=== PATIENT | female | born 1950 | race Two or more races ===

== ENCOUNTER 2024-08-11 12:00 | Emergency (ER) | payer MEDICARE, MEDICAID, SELFPAY ==
--- NOTE | ~2024-08-11 | XR_ITS ---
EXAMINATION: XR RIBS, RIGHT CLINICAL INFORMATION: rib pain s/p fall COMPARISON: None available. TECHNIQUE: 3 views of the right ribs were obtained. FINDINGS: Lungs are clear. No consolidation, pneumothorax, or pleural effusion. The cardiomediastinal silhouette and pulmonary vasculature are normal. Osseous structures are unremarkable. Ribs are intact. No fractures are identified. XR/XR ribs RT min 3V w CXR1V IMPRESSION: Unremarkable examination. Electronically signed by: Yogesh Ocampo MD 08/11/2024 03:12 PM DONYA
--- NOTE | ~2024-08-11 | XR_ITS ---
EXAMINATION: Left tibia-fibula CLINICAL INFORMATION: Wound anterior aspect of tibia fibula. Left tibia-fibula pain. COMPARISON: None. TECHNIQUE: 2 views of left tibia fibula FINDINGS: Soft tissues: Minimal calcification overlies the distal patella tendon perhaps reflecting degenerative change or calcium deposition disease. No ulceration detected. Arterial calcification noted. Chondrocalcinosis noted in the knee joint. Bones otherwise unremarkable. XR/XR tibia fibula LT 2V IMPRESSION: No acute abnormality detected. Bones unremarkable Electronically signed by: Yogesh Ocampo MD 08/11/2024 03:11 PM EST
[2024-08-11 12:43] VITALS: BP 170/62; PULSE 83; RESP 16; TEMP 36.3; O2SAT 98; BMI 21.0
--- NOTE | 2024-08-11 12:48 | ED_ITS ---
HPI - General Adult General Chief complaint: Fall Stated complaint: R Side Pain L Foot Pain Fall Time Seen by Provider: 08/11/24 22:01 Source: patient and family Mode of arrival: ambulatory Limitations: no limitations History of Present Illness ED Provider: emilie NAVARRETE narrative: Patient apparently fell while getting out of the bed 1 week ago hitting her peralta of left leg to the bed metal has superficial abrasion also complaining of pain in the left anterior ribs no shortness a no other injuries Related Data Previous Rx's ?Medication ?Instructions ?Recorded cephalexin 500 mg capsule 500 mg PO QID 10 days #7 caps 08/11/24 ibuprofen 600 mg tablet 600 mg PO Q8-10H PRN fever or pain 08/11/24 #30 tabs mupirocin 2 % topical ointment 1 appl topical BID #15 grams 08/11/24 Allergies Allergy/AdvReac Type Severity Reaction Status Date / Time No Known Allergies Allergy Verified 08/11/24 12:50 Review of Systems 2 Review of Systems: Yes all other systems are reviewed and are negative [facility] Social History Social History Advance Directives: No Advance Directives Information Provided: No Do you have a plan to hurt others: No Plan Physical Exam ED Vital Signs: Vital Signs - 24 hr 08/11/24 12:43 08/11/24 20:23 08/11/24 22:00 Temperature 97.4 F 98.5 F 98.6 F Pulse Rate 83 82 76 Respiratory Rate 16 16 18 Blood Pressure 170/62 H 182/70 H 174/68 H Pulse Oximetry 98 97 99 Oxygen Delivery Method Room Air Room Air Room Air BMI result Body Mass Index 21.0 Appearance: Alert. Oriented X3. No acute distress. Eyes: PERRLA, No Nystagmus ENT: Pharynx normal. Oral Mucosa moist Neck: Normal inspection. Neck supple. CVS: Normal heart rate and rhythm. Pulses normal. Respiratory: No respiratory distress. Equal air entry bilateral, no wheezing/rales/rhonchi Abdomen: Soft and nontender. Bowel sounds are present, no mass palpable, no CVA tenderness Skin: Skin warm and dry. Normal skin color. Normal skin turgor. Extremities: No lower extremity edema. No calf tenderness abrasion with slight redness left tibia Neuro: Oriented X 3. No motor deficit. No sensory deficit.No cerebellar signs , cranial nerves II-XII intact Chest Chest/axillae images: 2 1. Mild diffuse tenderness no crepitus lungs are clear Extrem Ankle/foot/toe images: 2 1. Superficial contusion with abrasion surrounding redness patient ambulatory as such Course Course Course Narrative: This is an RME: Additional HPI, ROS, PE not included below will be deferred to primary provider. RME assessment and note performed by: Lisandra Ya PA-C This is a [id number]-female, with a hx of diabetes, thyroid disease, hyperlipidemia, who presents to the ER with complaints of fall. Pt states that she stood up and felt dizzy and fell onto her right side 1 week ago. Reports right sided rib pain and left leg pain. She does admit to having intermittent episodes of dizziness, denies any dizziness at this time. Denies any head strike. She is not anticoagulated. Plan: Labs, EKG, xrays, further ER eval needed Medical Decision Making Medical Decision Making MDM Narrative: Patient is status post mechanical fall with superficial bruise on the left tibia x-ray will prescribe cephalexin to avoid infection and local treatment Lab Data MDM Lab Attestation statement: I reviewed the patient's lab results. 08/11/24 14:19 08/11/24 14:19 Labs: Lab Results 08/11/24 Range/Units 14:19 WBC 7.6 (4.8-10.8) X10*3/uL RBC 3.55 L (4.20-5.50) X10*6/uL Hgb 10.9 L (12.0-16.0) g/dl Hct 33.0 L (37.0-47.0) % MCV 93.0 (80.0-98.0) fL MCH 30.7 (27.0-33.0) pg MCHC 33.0 (31.0-35.0) g/dl RDW 13.7 (11.0-16.0) % Plt Count 319 (160-400) X10*3/uL MPV 11.7 (9.4-12.3) fL Immature Gran % (Auto) 0.4 (0.0-0.4) % Neut % (Auto) 59.7 (45-73) % Lymph % (Auto) 29.0 (20-40) % Thomas % (Auto) 8.0 (2-11) % Eos % (Auto) 2.2 (0-4) % Baso % (Auto) 0.7 (0-2) % Lymph # (Auto) 2.2 (1.2-4.9) X10*3/uL Thomas # (Auto) 0.6 (0.1-1.2) X10*3/uL Eos # (Auto) 0.2 (0.0-0.4) X10*3/uL Baso # (Auto) 0.1 (0.0-0.2) X10*3/uL Abs Immat Gran (auto) 0.03 (0.00-0.03) X10*3/uL Absolute Neuts (auto) 4.5 (2.0-8.3) x10*3/uL Absolute Nucleated RBC 0.000 (0.0-0.012) X10*3/uL Nucleated RBC % (auto) 0.0 (0.0-0.2) /100WBC Sodium 139 (135-145) mmol/L Potassium 4.6 (3.3-5.1) mmol/L Chloride 105 (96-108) mmol/L Carbon Dioxide 26 (22-29) mmol/L Anion Gap 13 (12-20) BUN 24 H (9-16) mg/dL Creatinine 0.97 (0.5-1.4) mg/dL Estim Creat Clear Calc 45.9 Estimated GFR 56 Random Glucose 213 H (60-115) mg/dL Calcium 9.1 (8.4-10.2) mg/dL Total Bilirubin 0.4 (0.0-1.0) mg/dL Direct Bilirubin 0.1 (0.0-0.5) mg/dL AST 20 (5-31) U/L ALT 18 (0-31) U/L Alkaline Phosphatase 108 (39-117) U/L Troponin I High Sens 3.0 (<3.5-17.0) ng/L Total Protein 7.8 (6.5-8.0) g/dL Albumin 4.0 (3.5-5.0) g/dL Independent Interpretation I performed an independent interpretation of an: Plain X-Ray Interpretation: Normal sinus rhythm heart rate 84 beats per minute no acute ST-T changes no acute ischemia Radiology Impression Discussion of test interpretation with radiology: I have reviewed the radiologist's reading. Radiologist Impression: No fracture Discharge Plan Discharge Clinical Impression: Contusion of left tibia, Rib contusion Patient Disposition: Home, Self-Care Instructions: Contusion in Adults (ED), Rib Contusion (ED) Additional Instructions: Local care of the wound as advised Antibiotic as prescribed to prevent infection Pain medication as prescribed Prescriptions: New cephalexin 500 mg capsule 500 mg PO QID 10 Days Qty: 7 0RF ibuprofen 600 mg tablet 600 mg PO Q8-10H PRN (Reason: fever or pain) Qty: 30 0RF mupirocin 2 % ointment 1 appl topical BID Qty: 15 0RF Print Language: Welsh
--- NOTE | 2024-08-11 12:52 | ECG_ITS ---
Test Reason : FALL Blood Pressure : / mmHG Vent. Rate : 084 BPM Atrial Rate : 084 BPM P-R Int : 154 ms QRS Dur : 084 ms QT Int : 386 ms P-R-T Axes : 012 -03 097 degrees QTc Int : 456 ms Normal sinus rhythm Nonspecific T wave abnormality Borderline ECG No previous ECGs available Referred By: Lisandra Ya Electronically Signed By:JUAN J CHAVEZ
[2024-08-11 14:26] LABS: Basophils Absolute Auto 0.1 X10*3/uL (0.0-0.2); Basophils Percent Auto 0.7 % (0-2); Eosinophils Absolute Auto 0.2 X10*3/uL (0.0-0.4); Eosinophils Percent Auto 2.2 % (0-4); Hemoglobin 10.9 g/dl (12.0-16.0); Imm Gran Abs Auto 0.03 X10*3/uL (0.00-0.03); Imm Gran Pct Auto 0.4 % (0.0-0.4); Lymphocytes Absolute Auto 2.2 X10*3/uL (1.2-4.9); MANUAL DIFF FLAG NO; Mean Corpuscular Hemoglobin 30.7 pg (27.0-33.0); Mean Platelet Volume 11.7 fL (9.4-12.3); Monocytes Absolute Auto 0.6 X10*3/uL (0.1-1.2); Neutrophils Absolute Auto 4.5 x10*3/uL (2.0-8.3); Neutrophils Percent Auto 59.7 % (45-73); Platelet Count 319 X10*3/uL (160-400); Red Blood Count 3.55 X10*6/uL (4.20-5.50); Red Cell Distribution Width 13.7 % (11.0-16.0); White Blood Count 7.6 X10*3/uL (4.8-10.8)
[2024-08-11 14:42] LABS: Alanine Aminotransferase 18 U/L (0-31); Alkaline Phosphatase 108 U/L (39-117); Anion Gap 13 (12-20); Aspartate Amino Transferase 20 U/L (5-31); Bilirubin Direct 0.1 mg/dL (0.0-0.5); Bilirubin Total 0.4 mg/dL (0.0-1.0); Blood Urea Nitrogen 24 mg/dL (9-16); Calcium 9.1 mg/dL (8.4-10.2); Carbon Dioxide 26 mmol/L (22-29); Chloride 105 mmol/L (96-108); Creatinine Clr Calc Pharmacy 45.9; Estimated Glomerular Filt Rate 56; Glucose Random 213 mg/dL (60-115); Potassium 4.6 mmol/L (3.3-5.1); Sodium 139 mmol/L (135-145); Total Protein 7.8 g/dL (6.5-8.0)
[2024-08-11 20:23] VITALS: BP 182/70; PULSE 82; RESP 16; TEMP 36.9; O2SAT 97
[2024-08-11 22:00] VITALS: BP 174/68; PULSE 76; RESP 18; TEMP 37; O2SAT 99
[2024-08-11] MEDS: Ibuprofen 600 MG TABLET PO (23:25)
[2024-08-11] MEDS: cephALEXin 500 MG CAPSULE PO (23:26)
[2024-08-11 23:36] VITALS: BP 185/67; PULSE 90; RESP 16; TEMP 36.9; O2SAT 98
== END 2024-08-11 23:37 | disposition home or self-care (01) ==
PROVIDERS: Physician Assistant Medical; Emergency Provider Internal Medicine
DX: S89.92XA Unspecified injury of left lower leg, initial encounter (principal); S20.212A Contusion of left front wall of thorax, initial encounter; R07.89 Other chest pain; M79.605 Pain in left leg; W06.XXXA Fall from bed, initial encounter; Y93.89 Activity, other specified; Y92.89 Other specified places as the place of occurrence of the external cause; Y99.8 Other external cause status; Z79.899 Other long term (current) drug therapy
CPT/HCPCS: 36415; 71101; 73590; 80048; 80076; 84484; 85025; 93005; 99283; 99284

== ENCOUNTER → 2024-08-11 12:52 | Outpatient (BNV) | payer MEDICAID, SELFPAY | PROVIDERS: Emergency Provider Internal Medicine; Visit Provider Internal Medicine | DX: R94.31 Abnormal electrocardiogram [ECG] [EKG] (principal) | CPT/HCPCS: 93010 ==

== ENCOUNTER 2024-08-29 09:42 | Emergency (ER) | payer MEDICARE, SELFPAY ==
[2024-08-29 10:01] VITALS: BP 147/72; PULSE 92; RESP 16; TEMP 35.8; O2SAT 98; BMI 18.9
[2024-08-29 10:47] LABS: MANUAL DIFF FLAG NO
[2024-08-29 10:49] LABS: Basophils Percent Auto 0.6 % (0-2); Eosinophils Absolute Auto 0.1 X10*3/uL (0.0-0.4); Eosinophils Percent Auto 2.1 % (0-4); Hematocrit 34.8 % (37.0-47.0); Hemoglobin 11.4 g/dl (12.0-16.0); Imm Gran Abs Auto 0.02 X10*3/uL (0.00-0.03); Imm Gran Pct Auto 0.3 % (0.0-0.4); Lymphocytes Absolute Auto 1.4 X10*3/uL (1.2-4.9); Lymphocytes Percent Auto 19.8 % (20-40); Mean Corpuscular HGB Conc 32.8 g/dl (31.0-35.0); Mean Corpuscular Hemoglobin 30.1 pg (27.0-33.0); Mean Corpuscular Volume 91.8 fL (80.0-98.0); Monocytes Absolute Auto 0.6 X10*3/uL (0.1-1.2); Monocytes Percent Auto 8.8 % (2-11); Neutrophils Absolute Auto 4.7 x10*3/uL (2.0-8.3); Neutrophils Percent Auto 68.4 % (45-73); Platelet Count 260 X10*3/uL (160-400); Red Blood Count 3.79 X10*6/uL (4.20-5.50); Red Cell Distribution Width 13.2 % (11.0-16.0); White Blood Count 6.8 X10*3/uL (4.8-10.8)
[2024-08-29 11:08] LABS: Anion Gap 13 (12-20); Blood Urea Nitrogen 19 mg/dL (9-16); Calcium 9.4 mg/dL (8.4-10.2); Carbon Dioxide 28 mmol/L (22-29); Chloride 99 mmol/L (96-108); Creatinine Clr Calc Pharmacy 37.9; Estimated Glomerular Filt Rate 47; Glucose Random 452 mg/dL (60-115); Potassium 4.9 mmol/L (3.3-5.1); Sodium 135 mmol/L (135-145)
[2024-08-29 15:40] VITALS: BP 158/75; PULSE 88; RESP 14; TEMP 36.8; O2SAT 99
--- NOTE | 2024-08-29 16:39 | ED_ITS ---
HPI - Extremity Injury (Lower) General Chief Complaint: Extremity Injury, Lower Stated Complaint: l leg inj Time Seen by Provider: 08/29/24 16:10 Source: patient and family Mode of arrival: ambulatory Limitations: no limitations History of Present Illness ED Provider: Dr. Sharon Leroy HPI Narrative: Patient comes to the emergency room complaining of left peralta chronic wound. Patient states that about a month ago patient had a fall, scraped her left peralta. Patient denies any fever any chills, active bleeding. Patient states that the reason she came is because she is not healing as expected and is concerned that she is diabetic. Patient states that she takes tablets at home to control with a glucose in takes them as prescribed. Patient denies any recent injuries Related Data Previous Rx's ?Medication ?Instructions ?Recorded cephalexin 500 mg capsule 500 mg PO QID 7 days #28 caps 08/11/24 ibuprofen 600 mg tablet 600 mg PO Q8-10H PRN fever or pain 08/11/24 #30 tabs mupirocin 2 % topical ointment 1 appl topical BID #15 grams 08/11/24 Allergies Allergy/AdvReac Type Severity Reaction Status Date / Time No Known Allergies Allergy Verified 08/29/24 10:09 Review of Systems 2 Review of Systems: Constitutional : No Weight loss, No Fever, No Chills, No Night Sweats, No Fatigue, No Malaise ENT/Mouth : No Hearing loss, No Ear Pain, No Nasal Congestion, No Sinus Pain, No Hoarseness, No sore throat, No Rhinorrhea, No Swallowing Difficulty Eyes: No Eye Pain, No Swelling, No Redness, No Foreign Body, No Discharge, No Vision Changes Cardiovascular : No Chest Pain, No SOB, No Dyspnea on Exertion, No Orthopnea, No Edema, No Palpitations Respiratory : No Cough, No Sputum, No Wheezing, No Smoke Exposure, No Dyspnea Gastrointestinal : No Nausea, No Vomiting, No Diarrhea, No Constipation, No abdominal Pain, No Hematochezia, No Melena Genitourinary : no irregular bleeding, No Dysuria, No Urinary Frequency, No Hematuria, No Urinary Incontinence, No Urgency, No Flank Pain, No Urinary Flow Changes, No Hesitancy Musculoskeletal : No joint pain, No Myalgias, No Joint Swelling Skin : Complaining of a chronic wound on the left peralta, No Skin Lesions, No rash Neuro : No Weakness, No Numbness, No Paresthesias, No Loss of Consciousness, No Dizziness, No Headache Psych : No Anxiety/Panic, No Depression, No SI/HI/AH/VH, No Social Issues, Heme/Lymph: No Bruising, No Bleeding,No Lymphadenopathy Endocrine : No Polyuria, No Polydipsia, No Temperature Intolerance [facility] Past Medical History Medical History (Updated 08/29/24 @ 16:56 by Sharon Leroy MD) Type 2 diabetes mellitus Social History Social History Smoked in Last 30 Days: No Advance Directives: No Advance Directives Information Provided: Yes Do you have a plan to hurt others: No Plan Physical Exam 2 Vital Signs: Vital Signs: Last Vital Signs Temp 98.2 F 08/29/24 15:40 Pulse 88 08/29/24 15:40 Resp 14 08/29/24 15:40 BP 158/75 H 08/29/24 15:40 Pulse Ox 99 08/29/24 15:40 O2 Del Method Room Air 08/29/24 15:40 BMI result Body Mass Index 18.9 Const: Other: Appearance: Alert. Oriented X3. No acute distress. Well-appearing Eyes: Pupils equal, round and reactive to light. ENT: Pharynx normal. Neck: Normal inspection. Neck supple. No lymph nodes noted. No crepitus CVS: Normal heart rate and rhythm. Pulses normal. Normal S1 and S2 Respiratory: No respiratory distress. Breath sounds normal. No Wheezing. No rales Abdomen: Soft and nontender. No rigidity. No distention. Skin: Skin warm and dry. Normal skin color. Normal skin turgor. Extremities: No lower extremity edema. . Patient has a 3 cm x 3 cm eschar over the peralta on the left lower extremity. looks cleaned, no drainage, no significant pain to palpation Neuro: Oriented X 3. No motor deficit. No sensory deficit. Moving all extremities. No slurred speech. CN 2 through 12 grossly intact Psych: calm, cooperative, normal affect Medical Decision Making Medical Decision Making MDM Narrative: My interpretation of labs: At baseline hematology and chemistry. Blood glucose 452, anion gap 13 I discussed with the patient and her daughter that they eschar/wound on the left peralta is chronic. At this time, it is not infected, antibiotics are not indicated. However, patient would benefit from wound clinic visits. -patient's POC glucose without any treatment is 277. No further management at this time. Patient states that she has her medications available for her at home. Patient will be sent home with the phone number to call wound care. Differential Diagnosis Differential Diagnoses: The differential diagnosis associated with the presentation includes (Hyperglycemia, cellulitis, abscess) Lab Data MDM Lab Attestation statement: I reviewed the patient's lab results. 08/29/24 10:23 08/29/24 10:23 Labs: Lab Results 08/29/24 Range/Units 10:23 WBC 6.8 (4.8-10.8) X10*3/uL RBC 3.79 L (4.20-5.50) X10*6/uL Hgb 11.4 L (12.0-16.0) g/dl Hct 34.8 L (37.0-47.0) % MCV 91.8 (80.0-98.0) fL MCH 30.1 (27.0-33.0) pg MCHC 32.8 (31.0-35.0) g/dl RDW 13.2 (11.0-16.0) % Plt Count 260 (160-400) X10*3/uL MPV 13.0 H (9.4-12.3) fL Immature Gran % (Auto) 0.3 (0.0-0.4) % Neut % (Auto) 68.4 (45-73) % Lymph % (Auto) 19.8 L (20-40) % [place] % (Auto) 8.8 (2-11) % Eos % (Auto) 2.1 (0-4) % Baso % (Auto) 0.6 (0-2) % Lymph # (Auto) 1.4 (1.2-4.9) X10*3/uL [place] # (Auto) 0.6 (0.1-1.2) X10*3/uL Eos # (Auto) 0.1 (0.0-0.4) X10*3/uL Baso # (Auto) 0.0 (0.0-0.2) X10*3/uL Abs Immat Gran (auto) 0.02 (0.00-0.03) X10*3/uL Absolute Neuts (auto) 4.7 (2.0-8.3) x10*3/uL Absolute Nucleated RBC 0.000 (0.0-0.012) X10*3/uL Nucleated RBC % (auto) 0.0 (0.0-0.2) /100WBC Sodium 135 (135-145) mmol/L Potassium 4.9 (3.3-5.1) mmol/L Chloride 99 (96-108) mmol/L Carbon Dioxide 28 (22-29) mmol/L Anion Gap 13 (12-20) BUN 19 H (9-16) mg/dL Creatinine 1.12 (0.5-1.4) mg/dL Estim Creat Clear Calc 37.9 Estimated GFR 47 Random Glucose 452 H* (60-115) mg/dL Calcium 9.4 (8.4-10.2) mg/dL Discharge Plan Discharge Clinical Impression: Chronic wound, Acute hyperglycemia Patient Disposition: Home, Self-Care Instructions: Diabetic Hyperglycemia (ED), Chronic Wounds (ED) Additional Instructions: Please follow-up with your primary care physician tomorrow. If you have any worsening or new symptoms, please return to the emergency room or call 911 Prescriptions: No Action ibuprofen 600 mg tablet 600 mg PO Q8-10H PRN (Reason: fever or pain) Qty: 30 0RF mupirocin 2 % ointment 1 appl topical BID Qty: 15 0RF cephalexin 500 mg capsule 500 mg PO QID 7 Days Qty: 28 0RF Referrals: Ashley Wilson MD [Physician] - 08/30/24 Print Language: Albanian
[2024-08-29 16:55] LABS: Glucose, Whole Blood 277 mg/dL (60-115)
[2024-08-29 16:59] VITALS: BP 174/70; PULSE 82; RESP 20; TEMP 37; O2SAT 98
[2024-08-29 17:00] LABS: Beta-Hydroxybutyrate 0.13 mmol/L (0.02-0.27)
[2024-08-29 17:10] VITALS: BP 174/70; PULSE 82; RESP 20; TEMP 37; O2SAT 98
== END 2024-08-29 17:13 | disposition home or self-care (01) ==
PROVIDERS: Emergency Provider Emergency Medicine
DX: S81.802A Unspecified open wound, left lower leg, initial encounter (principal); E11.65 Type 2 diabetes mellitus with hyperglycemia; W19.XXXA Unspecified fall, initial encounter; Y93.9 Activity, unspecified; Y92.89 Other specified places as the place of occurrence of the external cause; Y99.8 Other external cause status; Z79.899 Other long term (current) drug therapy
CPT/HCPCS: 36415; 80048; 82010; 82947; 85025; 99283; 99284

== ENCOUNTER 2024-11-14 08:59 | Outpatient (REF) | payer MEDICARE, SELFPAY ==
--- OUTSIDE RECORDS SUMMARY | 2024-11-14 09:47 | XMS_ITS | Clinical Summary ---
Author Organization [employer] Address [address] [place] [address] Care Team Providers Care Legal Office Administrator Name Role Phone Myriam Wang MD Primary Care Provider [phone] Allergies No known active allergies Medications lisinopril-hydroC HLOROthiazide 20-12.5 MG tabletIndications :Essential hypertension Take 1 tablet by mouth Once per day. 90 tablet 3 5 11/10/19 26 Active levothyroxine (Synthroid) 75 MCG tabletIndications :Hypothyroidism, unspecified type Take 1 tablet (75 mcg) by mouth before breakfast. 90 tablet 3 5 11/10/19 26 Active sertraline (Zoloft) 50 MG tabletIndications :Current moderate episode of major depressive disorder, unspecified whether recurrent ([facility]/HCC) Take 1 tablet (50 mg) by mouth Once per day. 90 tablet 3 5 11/05/19 26 Active empagliflozin (Jardiance) 10 MGIndications:Germaine betes mellitus due to underlying condition with diabetic polyneuropathy, without long-term current use of insulin ([facility]) Take 1 tablet (10 mg) by mouth Once per day. 90 tablet 3 5 11/10/19 26 Active glipiZIDE XL (Glucotrol XL) 10 MG 24 hr tabletIndications :Diabetes mellitus due to underlying condition with diabetic polyneuropathy, without long-term current use of insulin ([facility]) Take 1 tablet (10 mg) by mouth Once per day. Do not crush, chew, or split. 90 tablet 3 5 11/10/19 26 Active aspirin 81 MG chewable tabletIndications :Diabetes mellitus due to underlying condition with diabetic polyneuropathy, without long-term current use of insulin ([facility]) Chew 1 tablet (81 mg) Once per day. 90 tablet 3 5 11/10/19 26 Active Vit-Fe Ezs-GI-Rsfvt (PNV Plus Multivit+DHA) 27-1 & 312 MG miscIndications:U nderweight Take 1 tablet by mouth Once per day. 90 each 3 5 Active mirtazapine (Remeron) 7.5 MG tabletIndications :Underweight,Curr ent moderate episode of major depressive disorder, unspecified whether recurrent (CMS/HCC) Take 1 tablet (7.5 mg) by mouth at bedtime. For sleep and appetite 30 tablet 3 5 03/10/20 25 Active Active Problems Problem Noted Date Diagnosed Date Protein-calorie malnutrition, unspecified severi ty 11/10/2024 Diabetes mellitus due to und erlying condition with diabetic polyneuropathy, without long-term current use of insulin 11/10/2024 Essential hypertension 11/10/2024 Urge incontinence of urine 11/10/2024 Assessment & Plan (11/10/2024 10:07 AM EST): Needs pullups size small, 6 per day Frequent falls 11/10/2024 Assessment & Plan (11/10/2024 10:08 AM EST): Walker with seat Encounters Date Type Department Care Team Description 11/10/2024 9:00 AM EST Office Visit [facility] [address] [place] [id number] Myriam Wang MD Essential hypertension (Primary Dx); Dietary counseling; Exercise counseling; Underweight; Diabetes mellitus due to underlying condition with diabetic polyneuropathy, without long-term current use of insulin (CMS/HCC); Protein-calorie malnutrition, unspecified severity (CMS/HCC); Current moderate episode of major depressive disorder, unspecified whether recurrent (CMS/HCC); Hypothyroidism, unspecified type; Urge incontinence of urine; Frequent falls 11/10/2024 Travel 10/27/2024 Patient Outreach [facility] [address] [place] [phone] Myriam Wang MD Care Coordination ([facility] outreach for SDOH PT-1 and food needs-referral completed /) 10/27/2024 Patient Outreach [facility] [address] [place] [address] Myriam Wang MD Pre-visit Planning (SDOH screening negative and tobacco screening negative) from Last 3 Months Social History Tobacco Use Types Packs/Day Years Used Date Smoking Tobacco: Never Smokeless Tobacco: Never Tobacco Cessation:Counseling Given: Not Answered Alcohol Use Standard Drinks/Week Comments Never 0 (1 standard drink = 0.6 oz pur e alcohol) Depression Answer Date Recorded Patient Health Questionnaire-9 Score 2 11/10/2024 Patient Health Questionnaire-9 Score 2 11/10/2024 Last PHQ-9: Questionnaire Data Not on file 0 11/10/2024 Housing Stability Answer Date Recorded What is your housing situation today? I have bridger chatman 10/27/[address] you li ve. Do you have problems with any of the following? None of the above 10/27/2024 Food Insecurity Answer Date Recorded Within the past 12 months, y ou worried that your food would run out before you got money to buy more: Never True 10/27/2024 Within the past 12 months,th e food you bought just didn't last and you didn't have enough money to get more: Never True Transportation Answer Date Recorded In the past 12 months, has l ack of transportation kept you from medical appts, meetings, work or from getting things needed for daily living? Yes, it has kept me from non-medical meetings, work, or getting things that I need 10/27/2024 Utilities Answer Date Recorded In the past 12 months, has t he electric, gas, oil or water company threatened to shut off services in your home? No 10/27/2024 Depression Answer Date Recorded Patient Health Questionnaire-2 Score 0 11/10/2024 Internet Access Answer Date Recorded Internet Access Q1 No 10/27/2024 Internet Access Q2 I do not want or need it 10/14 Comments Unknown Sex and Gender Information Value Date Recorded Sex Assigned at Female 09/21/2024 2:23 PM EST Legal Sex Female 2:16 PM EST Gender Identity Female 09/21/2024 2:23 PM EST Sexual Orientation Don't know 11/09/2024 8: 36 AM EST Last Filed Vital Signs Vital Sign Reading Time Taken Comments Blood Pressure 172/92 11/10/2024 9:03 AM EST Pulse 92 11/10/2024 9:03 AM EST Temperature 36.4 ??C (97.5 ??F) 11/10/2024 9:03 AM ES T Respiratory Rate 15 11/10/2024 9:03 AM EST Oxygen Saturation 100% 11/10/2024 9:03 AM EST Inhaled Oxygen Concentration - - Weight 52.6 kg (116 lb) 11/10/2024 9:03 AM EST Height 172.7 cm (5' 8 ) 11/10/2024 9:03 AM EST Body Mass Index 17.64 11/10/2024 9:03 AM EST Plan of Treatment Upcoming Encounters Date Type Department Care Team (Late st Contact Info) Description 02/06/2025 11:30 AM EDT Office Visit [facility] [address], [place] [phone] Myriam Wang MD [address], [place] [phone] Health Maintenance Due Date Last Done Comments Diabetes: Hemoglobin A1C 1948 Lipid Panel 1948 Diabetes: Foot Exam 1958 Eye Exam 1958 Hepatitis C Screening 1966 DTaP/Tdap/Td Vaccines (1 - Tdap) 1967 Diabetes: Urine Protein Screening 1967 Pneumococcal Vaccine: 50+ Years (1 of 2 - PCV) 1967 Zoster Vaccines (1 of 2) 1998 RSV Patients and Patients Aged 60 years or older (1 - 1-dose 75+ series) 2023 COVID-19 Vaccine (1 - 2023-2 5 season) 2024 Influenza Vaccine (#1) 2024 SDOH Screening 10/27/2025 10/27/2024 Alcohol/Substance Use Screening 11/10/2025 11/10/2024 Depression Screening 11/10/2025 11/10/2024, 11/10/2024 Tobacco Screening 11/10/2025 11/10/2024 HIB Vaccines Aged Out No longer eligi ble based on patient's age to complete this topic HPV Vaccines Aged Out No longer eligi ble based on patient's age to complete this topic Hepatitis A Vaccines Aged Out No long er eligible based on patient's age to complete this topic Hepatitis B Vaccines Aged Out No long er eligible based on patient's age to complete this topic IPV Vaccines Aged Out No longer eligi ble based on patient's age to complete this topic Meningococcal Vaccine Aged Out No ryan otis eligible based on patient's age to complete this topic RSV under 20 months Aged Out No longe r eligible based on patient's age to complete this topic Rotavirus Vaccines Aged Out No longer eligible based on patient's age to complete this topic Insurance [facility] STANDARD MEDICARE Care Teams Legal Office Administrator Relationship Specialty Start Date End Date Myriam Wang MD [address] [place] [phone] PCP - General Family Medicine 11/10/24
--- OUTSIDE RECORDS SUMMARY | 2024-11-14 09:47 | XMS_ITS | Encounter Summary ---
Author Organization [employer] Address [address] [place] [address] Care Team Providers Care Dough Mixer Name Role Phone Unavailable Primary Care Provider Unavailabl e Reason for Visit * Reason Comments Care Coordination CHW outreach for SDO H PT-1 and food needs-referral completed Encounter Details Date Type Department Care Team (Latest Contact Info) Description 10/27/2024 Patient Outreach [facility] [address] [place] [address] Myriam Wang MD [address] [place] [address] Care Coordination (CHW outreach for SDOH PT-1 and food needs-referral completed /) Social History Tobacco Use Types Packs/Day Years Used Date Smoking Tobacco: Never Assessed Housing Stability Answer Date Recorded What is your housing situation today? I have bridgerdk chatman 10/27/[address] you [...] off services in your home? No 10/27/2024 Internet Access Answer Date Recorded Internet Access Q1 No 10/27/2024 Internet Access Q2 I do not want or need it 10/14 Comments Unknown Sex and Gender Information Value Date Recorded Sex Assigned at Female 09/21/2024 2:23 PM EST Legal Sex Female 2:16 PM EST Gender Identity Female 09/21/2024 2:23 PM EST Sexual Orientation Don't know 11/09/2024 8: 36 AM EST documented as of this encounter Progress Notes * Mervin Francois - 10/27/2024 10:30 AM EST CHW Mervin Francois, placed outbound call to patient for assistance with SDOH as a referral was received by the provider. Patient's name and were confirmed. Patient screened positive for the following SDOH food insecurities. Patient states family in on SNAP program at this time. CHW referral patient to the local list of pantries in the area for help. PT-1 requested was send out in behalf of patient for futures appt. Patient verbalizes understanding, and able to agree with plan to follow up.Patient educated on extended clinic hours on Mondays through Wednesdays, and Walk-In Urgent Care Located in [facility] of [facility]. Patient provided with after-hours line for [facility], , which offer night time triage service and option to transfer to manager valuation provider if needed. documented in this encounter Plan of Treatment Upcoming Encounters Date Type Department Care Team (Late st Contact Info) Description 02/06/2025 11:30 AM EDT Office Visit [facility] [address] [place] [address] Myriam Wang MD [address] [place] [address] documented as of this encounter Visit Diagnoses Not on filedocumented in this encounter
--- OUTSIDE RECORDS SUMMARY | 2024-11-14 09:48 | XMS_ITS | Encounter Summary ---
Author Organization [employer] Address [address] [place] [address] Care Team Providers Care Repeat Photocomposing Machine Operator Name Role Phone Myriam Wang MD Primary Care Provider [phone] Encounter Details Date Type Department Care Team (Latest Contact Info) Description 11/10/2024 Travel Social History Tobacco Use Types Packs/Day Years Used Date Smoking Tobacco: Never Smokeless Tobacco: Never Alcohol Use Standard Drinks/Week Comments Never 0 (1 standard drink = 0.6 oz pur e alcohol) Depression Answer Date Recorded Patient Health Questionnaire-9 Score 2 11/10/2024 Patient Health Questionnaire-9 Score 2 11/10/2024 Last PHQ-9: Questionnaire Data Not on file 0 11/10/2024 Housing Stability Answer Date Recorded What is your housing situation today? I have bridger sing 10/27/[address] you li [...] AM EST documented as of this encounter Plan of Treatment Upcoming Encounters Date Type Department Care Team (Late st Contact Info) Description 02/06/2025 11:30 AM EDT Office Visit [facility] [address] [place] [address] Myriam Wang MD [address] [place] [address] documented as of this encounter Visit Diagnoses Not on filedocumented in this encounter Additional Health Concerns Assessment Noted Time PHQ-9 Depression Total Score: 2 11/10/19 9:04 AM EST documented as of this encounter Care Teams Repeat Photocomposing Machine Operator Relationship Specialty Start Date End Date Myriam Wang MD [address] [place] [address] [id number] PCP - General Family Medicine 11/10/24 documented as of this encounter
--- OUTSIDE RECORDS SUMMARY | 2024-11-14 09:48 | XMS_ITS | Encounter Summary ---
Author Organization [employer] Address [address] [facility] 7[address] [place] [address] Care Team Providers Care Case Supervisor Name Role Phone Unavailable Primary Care Provider Unavailabl e Reason for Visit * Reason Comments Pre-visit Planning SDOH screening negat mervat and tobacco screening negative Encounter Details Date Type Department Care Team ([facility] st Contact Info) Description 10/27/2024 Patient Outreach [facility] [address] [place] [address] Myriam Wang MD [address] [place] [address] Pre-visit Planning (SDOH screening negative and tobacco screening negative) Social History Tobacco Use Types Packs/Day Years Used Date Smoking Tobacco: Never Assessed Housing Stability Answer Date Recorded What is your housing situation today? I have bridger lurdes 10/27/[address] you li [...] as of this encounter Progress Notes * Eli Whitlock - 10/27/2024 9:13 AM EST CC Eli placed successful outbound call to patient for pre-visit planning. Patient name and confirmed. Patient confirms date and time, and has transportation arrangements. Biggest concern for appointment appt at this time is poor ambulation and neuropathy Appropriate screening completed in ant icipation of appointment. Patient advised to bring to appointment a photo id and insurance card, SDOH positive. Patient looking for assistance with transportation Referral will be placed. documented in this encounter Plan of Treatment Upcoming Encounters Date Type Department Care Team (Late st Contact Info) Description 02/06/2025 11:30 AM EDT Office Visit [facility] [address] [place] [address] Myriam Wang MD [address] [place] [address] documented as of this encounter Visit Diagnoses Not on filedocumented in this encounter
--- OUTSIDE RECORDS SUMMARY | 2024-11-14 09:48 | XMS_ITS | Encounter Summary ---
Author Organization [employer] Address [address] [facility] 7t [place] [address] Care Team Providers Care Loan Officer Name Role Phone Myriam Wang MD Primary Care Provider [phone] Reason for Referral * Consultation (Routine) - Authorized Specialty Diagnoses / Procedures Referred By Bren anderson Referred To Contact Optometry Diagnoses Diabetes mellitus due to underlying condition with diabetic polyneuropathy, without long-term current use of insulin (CMS/HCC) Myriam Wang MD [address] [place] [address] Phone: tel: fax: [facility] OPTOMETRY [address] [place] [address] Phone: tel: fax: Referral ID Status Reason Start Date Expiration Date Visits Requested Visits Authorized [id number] Authorized Consult and Treat 11/10/2024 11/10/2025 1 1 * Consultation (Routine) - Authorized Specialty Diagnoses / Procedures Referred By Bren anderson Referred To Contact Podiatry Diagnoses Diabetes mellitus due to underlying condition with diabetic polyneuropathy, without long-term current use of insulin (CMS/HCC) Myriam Wang MD [address] [place] [address] Phone: tel: fax: Gianluca Child DPM [address] [address] Phone: tel: fax: Referral ID Status Reason Start Date Expiration Date Visits Requested Visits Authorized [id number] Authorized Specialty Services Required 11/10/2024 11/10/2025 1 1 Reason for Visit * Reason Comments New Patient Encounter Details Date Type Department Care Team (Late st Contact Info) Description 11/10/2024 9:00 AM EST Office Visit [facility] [address] [place] [address] Myriam Wang MD [address] [place] [address] Essential hypertension (Primary Dx); Dietary counseling; Exercise counseling; Underweight; Diabetes mellitus due to underlying condition with diabetic polyneuropathy, without long-term current use of insulin (CMS/HCC); Protein-calorie malnutrition, unspecified severity (CMS/HCC); Current moderate episode of major depressive disorder, unspecified whether recurrent (CMS/HCC); Hypothyroidism, unspecified type; Urge incontinence of urine; Frequent falls Social History Tobacco Use Types Packs/Day Years [...] AM EST documented as of this encounter Last Filed Vital Signs Vital Sign Reading [...] Mass Index 17.64 11/10/2024 9:03 AM EST documented in this encounter Progress Notes * Myriam Wang MD - 11/10/2024 9:00 AM EST SUBJECTIVE: Carrol Tucker is a 74 y.o. year old female who presents for new/transfer patient. Was in the ER for fall and laceration of L peralta 07/2024 Acute Concerns: Poor ambulation, neuropathy, fatigue, out of medications Podiatry referral Interim Updates: HTN In Lisinopril/hydrochlorothiazide DM2 On Jardiance, Glipizide Depression On Zoloft and Risperidone (for sleep) Will discontinue Risperidone and start Mirtazapine Neuropathy On Gabapentin, did not like it Urinary incontinence Urge incontinence Uses pullups Hypothyroidism On Synthroid 75mcg daily Patient Active Problem List Diagnosis Protein-calorie malnutrition, unspecified severity (CMS/HCC) Diabetes mellitus due to underlying condition with diabetic polyneuropathy, without long-term current use of insulin ([facility]) Essential hypertension Urge incontinence of urine Frequent falls History reviewed. No pertinent surgical history. No family history on file. Social History Social History Narrative Not on file Review of Systems Constitutional: Positive for activity change, appetite change, fatigue and unexpected weight change. Negative for chills, diaphoresis and fever. HENT: Negative. Respiratory: Negative. Cardiovascular: Negative. Gastrointestinal: Negative. Musculoskeletal: Positive for arthralgias. Skin: Positive for wound. OBJECTIVE: Vitals: 11/10/24 0903 BP: (!) 172/92 BP Location: Right arm Patient Position: Sitting BP Cuff Size: Adult Pulse: 92 Resp: 15 Temp: 97.5 ??F (36.4 ??C) TempSrc: Temporal SpO2: 100% Weight: 116 lb (52.6 kg) Height: 5' 8 (1.727 m) Physical Exam ASSESSMENT/PLAN Problem List Items Addressed This Visit Protein-calorie malnutrition, unspecified severity ([facility]) Diabetes mellitus due to underlying condition with diabetic polyneuropathy, without long-term current use of insulin ([facility]) Relevant Medications empagliflozin (Jardiance) 10 MG glipiZIDE XL (Glucotrol XL) 10 MG 24 hr tablet aspirin 81 MG chewable tablet Other Relevant Orders Hemoglobin A1c Referral to Podiatry Referral to [facility] Essential hypertension - Primary Relevant Medications lisinopril-hydroCHLOROthiazide 20-12.5 MG tablet Other Relevant Orders TSH W/Reflex to FT4 CBC auto differential Comprehensive Metabolic Panel Lipid Panel, Standard Urge incontinence of urine Current Assessment & Plan Needs pullups size small, 6 per day Frequent falls Current Assessment & Plan Walker with seat Other Visit Diagnoses Dietary counseling Exercise counseling Underweight Relevant Medications Vit-Fe Vwd-PH-Adoyy (PNV Plus Multivit+DHA) 27-1 & 312 MG misc mirtazapine (Remeron) 7.5 MG tablet Current moderate episode of major depressive disorder, unspecified whether recurrent ([facility]) Relevant Medications sertraline (Zoloft) 50 MG tablet mirtazapine (Remeron) 7.5 MG tablet Hypothyroidism, unspecified type Relevant Medications levothyroxine (Synthroid) 75 MCG tablet Follow Up: 2 months or sooner prn No Known Allergies Current Outpatient Medications: aspirin 81 MG chewable tablet, Chew 1 tablet (81 mg) Once per day., Disp: 90 tablet, Rfl: 3 empagliflozin (Jardiance) 10 MG, Take 1 tablet (10 mg) by mouth Once per day., Disp: 90 tablet, Rfl: 3 glipiZIDE XL (Glucotrol XL) 10 MG 24 hr tablet, Take 1 tablet (10 mg) by mouth Once per day. Do notcrush, chew, or split., Disp: 90 tablet, Rfl: 3 levothyroxine (Synthroid) 75 MCG tablet, Take 1 tablet (75 mcg) by mouth before breakfast., Disp: 90 tablet, Rfl: 3 lisinopril-hydroCHLOROthiazide 20-12.5 MG tablet, Take 1 tablet by mouth Once per day., Disp: 90 tablet, Rfl: 3 mirtazapine (Remeron) 7.5 MG tablet, Take 1 tablet (7.5 mg) by mouth at bedtime. For sleep and appetite, Disp: 30 tablet, Rfl: 3 Vit-Fe Qod-AV-Lmvyc (PNV Plus Multivit+DHA) 27-1 & 312 MG misc, Take 1 tabletby mouth Once per day., Disp: 90 each, Rfl: 3 sertraline (Zoloft) 50 MG tablet, Take 1 tablet (50 mg) by mouth Once per day., Disp: 90 tablet, Rfl: 3 East Timorese Translation: Provided by [facility] staff member LISSA Garcia documented in this encounter Miscellaneous Notes * Assessment & Plan Note - Myriam Wang MD - 11/10/2024 10:08 AM EST Associated Problem(s): Frequent falls Walker with seat * Assessment & Plan Note - Myriam Wang MD - 11/10/2024 10:07 AM EST Associated Problem(s): Urge incontinence of urine Needs pullups size small, 6 per day documented in this encounter Plan of Treatment Upcoming Encounters Date Type Department Care Team (Late st Contact Info) Description 02/06/2025 11:30 AM EDT Office Visit [facility] [address] [place] [address] Myriam Wang MD [address] [place] [address] Scheduled Orders Name Type Priority Associated Diagnoses Orde r Schedule TSH W/Reflex to FT4 Lab Routine Essential hypertension Expected: 11/10/2024 (Approximate), Expires: 11/10/2025 CBC auto differential Lab Routine Essential hypertension Expected: 11/10/2024 (Approximate), Expires: 11/10/2025 Comprehensive Metabolic Panel Lab Routine Essential hypertension Expected: 11/10/2024 (Approximate), Expires: 11/10/2025 Lipid Panel, Standard Lab Routine Essential hypertension Expected: 11/10/2024 (Approximate), Expires: 11/10/2025 Hemoglobin A1c Lab Routine Diabetes mellitus due to underlying condition with diabetic polyneuropathy, without long-term current use of insulin (CMS/HCC) Expected: 11/10/2024 (Approximate), Expires: 11/10/2025 Scheduled Referrals Name Type Priority Associated Diagnoses Orde r Schedule Referral to Podiatry Outpatient Referral Routine Diabetes mellitus due to underlying condition with diabetic polyneuropathy, without long-term current use of insulin (CMS/HCC) Expected: 11/10/2024 (Approximate), Expires: 11/10/2025 Referral to [facility] Care Outpatient Referral Routine Diabetes mellitus due to underlying condition with diabetic polyneuropathy, without long-term current use of insulin (CMS/HCC) Expected: 11/10/2024 (Approximate), Expires: 11/10/2025 documented as of this encounter Visit Diagnoses Diagnosis Essential hypertension- Primary Unspecified essential hypertension Dietary counseling Dietary surveillance and counseling Exercise counseling Underweight Diabetes mellitus due to underlying condition with diabetic polyneuropathy, without long-term current use of insulin (CMS/HCC) Protein-calorie malnutrition, unspecified severity (CMS/HCC) Current moderate episode of major depressive disorder, unspecified whether recurrent (CMS/HCC) Hypothyroidism, unspecified type Urge incontinence of urine Urge incontinence Frequent falls documented in this encounter Additional Health Concerns Assessment Noted Time PHQ-9 Depression Total Score: 2 11/10/19 9:04 AM EST documented as of this encounter Care Teams Loan Officer Relationship Specialty Start Date End Date Myriam Wang MD [address] [place] [phone] PCP - General Family Medicine 11/10/24 documented as of this encounter
[2024-11-14 11:25] LABS: MANUAL DIFF FLAG NO
[2024-11-14 11:36] LABS: Basophils Percent Auto 0.5 % (0-2); Eosinophils Absolute Auto 0.2 X10*3/uL (0.0-0.4); Hematocrit 37.4 % (37.0-47.0); Hemoglobin 12.3 g/dl (12.0-16.0); Imm Gran Abs Auto 0.03 X10*3/uL (0.00-0.03); Imm Gran Pct Auto 0.4 % (0.0-0.4); Lymphocytes Absolute Auto 2.4 X10*3/uL (1.2-4.9); Mean Corpuscular HGB Conc 32.9 g/dl (31.0-35.0); Mean Corpuscular Hemoglobin 29.8 pg (27.0-33.0); Mean Corpuscular Volume 90.6 fL (80.0-98.0); Mean Platelet Volume 13.4 fL (9.4-12.3); Monocytes Absolute Auto 0.7 X10*3/uL (0.1-1.2); Monocytes Percent Auto 8.8 % (2-11); Neutrophils Absolute Auto 4.2 x10*3/uL (2.0-8.3); Neutrophils Percent Auto 56.3 % (45-73); Platelet Count 268 X10*3/uL (160-400); Red Blood Count 4.13 X10*6/uL (4.20-5.50); Red Cell Distribution Width 13.2 % (11.0-16.0); White Blood Count 7.5 X10*3/uL (4.8-10.8)
[2024-11-14 11:52] LABS: Estimated Average Glucose 260 mg/dL; Hemoglobin A1C 302.7026 umol/L; Hemoglobin A1c % 10.7 % (<6.0); Total Hemoglobin (HGBA1C) 3234.0095 umol/L
[2024-11-14 12:07] LABS: Alanine Aminotransferase 19 U/L (0-31); Alkaline Phosphatase 115 U/L (39-117); Anion Gap 12 (12-20); Aspartate Amino Transferase 16 U/L (5-31); Bilirubin Total 0.4 mg/dL (0.0-1.0); Blood Urea Nitrogen 22 mg/dL (9-16); Calcium 9.2 mg/dL (8.4-10.2); Carbon Dioxide 27 mmol/L (22-29); Chloride 103 mmol/L (96-108); Cholesterol 301 mg/dL (<200); Estimated Glomerular Filt Rate 53; Glucose Random 360 mg/dL (60-115); HDL Cholesterol 52 mg/dL (>40); LDL Cholesterol Calculated 203 mg/dL (<100); Potassium 4.6 mmol/L (3.3-5.1); Sodium 137 mmol/L (135-145); Total Protein 8.2 g/dL (6.5-8.0); Triglycerides 234 mg/dL (<150)
[2024-11-14 12:21] LABS: TSH reflex Free T4 8.49 uIU/mL (0.32-4.0)
[2024-11-14 13:09] LABS: Free T4 (Free Thyroxine) 0.73 ng/dL (0.71-1.85)
== END 2024-11-14 09:00 | disposition home or self-care (01) ==
LOC: HO.HHCL 08:59
PROVIDERS: Visit Provider General Practice
DX: I10 Essential (primary) hypertension (principal); E08.42 Diabetes mellitus due to underlying condition with diabetic polyneuropathy
CPT/HCPCS: 36415; 80053; 80061; 83036; 84439; 84443; 85025

== ENCOUNTER 2025-02-06 12:08 | Outpatient (REF) | payer MEDICARE, SELFPAY ==
--- OUTSIDE RECORDS SUMMARY | 2025-02-06 12:29 | XMS_ITS | Clinical Summary ---
Author Organization [address] [facility] Address [address] [place] [address] Phone Care Team Providers Care Associate Professor Of History Name Role Phone Myriam Wang MD Primary Care Provider [phone] Social History Tobacco Use Types Packs/Day Years Used Date Smoking Tobacco: Never Assessed Comments Unknown Sex and Gender Information Value Date Recorded Sex Assigned at Not on file Legal Sex Female 8:28 AM EDT Gender Identity Not on file Sexual Orientation Not on file Plan of Treatment Upcoming Encounters Date Type Department Care Team ([facility] st Contact Info) Description 02/12/2025 10:30 AM EDT Consult Orthopedic Surgery - [place] [address] [phone] Baldo Pérez, LEE [address] [address] Health Maintenance Due Date Last Done Comments Diabetes: Annual GFR (Glomer ular Filtration Rate) 1948 Diabetes: Annual Foot Exam 1958 Diabetes: Annual Retina Eye Exam 1958 DTaP,Tdap,and Td Vaccines (1 - Tdap) 1967 Pneumococcal Vaccine: 50+ Ye ars (1 of 2 - PCV) 1967 Zoster Vaccines (1 of 2) 1998 RSV Immunization Adult Patie nts (1 - 1-dose 75+ series) 2023 COVID-19 Vaccine ( - 2023-2 5 season) 2024 Cholesterol Screening (Lipid Panel) 11/29/2024 Depression Screening 11/29/2024 Diabetes: Annual Urine Albumin-Creatinine Ratio (uACR) 11/29/2024 Diabetes: Blood Sugar Contro l Test (HGBA1C) 11/29/2024 Falls Risk Assessment 11/29/2024 Hepatitis C Screening 11/29/2024 Osteoporosis Screening (Bone Density Screening) 11/29/2024 Social Influencers of Health Screening 11/29/2024 Influenza Vaccine (Season Ended) 2025 HIB Vaccines Aged Out No longer eligi [...] on patient's age to complete this topic MMR Vaccines Aged Out No longer eligi ble based on patient's age to complete this topic Meningococcal ACWY Vaccine Aged Out N o longer eligible based on patient's age to complete this topic Meningococcal B Vaccine Aged Out No l onger eligible based on patient's age to complete this topic RSV Immunization Patients Un hunter 20 months Aged Out No longer eligible b ased on patient's age to complete this topic Varicella Vaccines Aged Out No longer eligible based on patient's age to complete this topic Insurance MEDICAID - [place] MEDICARE Care Teams Associate Professor Of History Relationship Specialty Start Date End Date Myriam Wang MD [address] [place] [address] PCP - General Dental Assisting Instructor 11/29/24
[2025-02-06 13:50] LABS: Alanine Aminotransferase 17 U/L (0-31); Albumin Level 4.3 g/dL (3.5-5.0); Alkaline Phosphatase 109 U/L (39-117); Anion Gap 13 (12-20); Aspartate Amino Transferase 17 U/L (5-31); Bilirubin Total 0.3 mg/dL (0.0-1.0); Blood Urea Nitrogen 27 mg/dL (9-16); Calcium 10.2 mg/dL (8.4-10.2); Carbon Dioxide 27 mmol/L (22-29); Chloride 104 mmol/L (96-108); Estimated Glomerular Filt Rate 56; Glucose Random 200 mg/dL (60-115); Potassium 4.4 mmol/L (3.3-5.1); Sodium 140 mmol/L (135-145); Total Protein 8.1 g/dL (6.5-8.0)
[2025-02-07 09:04] LABS: ~HepC Num1 0.14 S/CO (0.00-0.79); ~Hepatitis C Antibody Nonreactive (Nonreactive)
== END 2025-02-06 12:09 | disposition home or self-care (01) ==
LOC: HO.HHCL 12:08
PROVIDERS: Visit Provider General Practice
DX: E03.9 Hypothyroidism, unspecified (principal); E08.42 Diabetes mellitus due to underlying condition with diabetic polyneuropathy
CPT/HCPCS: 36415; 80053; 84439; 84443; 86803